=== PATIENT | female | born 1985 | race Caucasian/White ===

== ENCOUNTER → 2016-12-08 | Outpatient (CLI) | payer BC ==
[~2016-12-08] MED LIST: ALBU6.7H INH; ALPR1 PO; CLAR10TA7 PO; DICL50 PO; ROBA750T3 PO; TRAM50 PO
== END ==
LOC: HPND 08:06
PROVIDERS: ATTEND Obstetrics & Gynecology
DX: O30.041 Twin pregnancy, dichorionic/diamniotic, first trimester (principal); Z3A.13 13 weeks gestation of pregnancy
CPT/HCPCS: 76811; 76812; 76817

== ENCOUNTER → 2017-01-05 | Outpatient (CLI) | payer BC | LOC: HPND 08:02 | PROVIDERS: ATTEND Obstetrics & Gynecology | DX: O30.042 Twin pregnancy, dichorionic/diamniotic, second trimester (principal); O09.812 Supervision of pregnancy resulting from assisted reproductive technology, second trimester; O09.212 Supervision of pregnancy with history of pre-term labor, second trimester | CPT/HCPCS: 76816; 76817 ==

== ENCOUNTER 2017-01-17 09:48 | Emergency (ER) | payer BC ==
--- NOTE | 2017-01-17 10:43 | PD ---
HPI Chief Complaint Crampy abdominal pain no bleeding Date Seen: Jan 17, 2017 Time Seen: 10:35 Travel History International Travel<30 Days: No Contact w/Intl Traveler<30Days: No Known Affected Area: No History of Present Illness HPI Patient is 31-year-old white female previous 2 at 23-1/2 weeks with twin gestation followed by Dr. Escalante for care presents planning of lower abdominal pain. No bleeding or leakage of fluid. Patient has placenta previa as well. Heart tones for twins are within normal limits for 23 weeks ago heart monitor and no contractions seen. Weeks Gestation: 23 Para: 3 : 4 History Past Medical History Narrative Medical Asthma uses an inhaler Obstetric History Obstetric History One vaginal delivery than 2 C-sections Past Surgical History Narrative Surgical 2 C-sections Social History Alcohol Use: No Tobacco Use: No Substance Abuse: No Allergies-Medications (Allergen,Severity, Reaction): Coded Allergies: acetaminophen (Unverified Allergy, Severe, 11/16/16) codeine (Unverified Allergy, Severe, ITCH, 11/16/16) propoxyphene (Unverified Allergy, Severe, 11/16/16) oxycodone (Unverified Allergy, Intermediate, itch, 11/16/16) Uncoded Allergies: NOT CODEINE (Allergy, Unknown, 11/16/16) PATIENT STATES NOT ALLERGIC TO CODEINE OR OXYCODONE NOT OXYCODONE (Allergy, Unknown, 11/16/16) PATIENT STATES NOT ALLERGIC TO OXYCODONE Home Meds Active Scripts Tramadol Hcl (Ultram) 50 Mg Tab, 50-100 MG PO Q6 Y, #20 TAB FOR PAIN Prov:Leroy Vaughn MD 12/20/12 Diclofenac Sod (Voltaren) 50 Mg Tabec, 50 MG PO TID, #30 FOR PAIN Prov:Leroy Vaughn MD 12/20/12 Methocarbamol (Robaxin-750) 750 Mg Tab, 1500 MG PO TID, #50 Prov:Leroy Vaughn MD 12/20/12 Reported Medications Loratadine (Claritin) 10 Mg Tab, 10 MG PO DAILY, TAB 12/20/12 Alprazolam (Xanax 1 Mg Tab) 1 Mg Tab, 1 MG PO Q6H Y, TAB 12/20/12 Albuterol Sulfate (Proventil Hfa) 6.7 Gm Aero, 1 PUFF INH Q6, #1 * SHAKE WELL BEFORE USE * 09/07/10 Review of Systems General / Constitutional: No: Fever, Weight Gain, Chills, Other Eyes: No: Diploplia, Blurred Vision, Visual changes, Pain, Photophobia HENT: No: Headaches, Vertigo, Lightheadedness Cardiovascular: No: Irregular Rhythm, Chest Pain or Discomfort, Palpitations, Tachycardia, Syncope, Varicosities, Edema, Cyanosis Respiratory: No: Cough, Short of Breath, Other Gastrointestinal: Abdominal Pain, No: Nausea, Vomiting, Diarrhea Genitourinary: No: Decreased Urinary Output, Oliguria Musculoskeletal: No: Limited ROM, Weakness, Cramping, Edema, Pain Skin: No Rash, No Itching, No Dryness, No Lumps, No Change in Pigmentation, No Change in Nails, No Alopecia, No Lesions Neurologic: No: Weakness, Dizziness, Syncope, Focal Abnormalities, Coordination Problem, Headache, Slurred Speech, Seizures Psychiatric: No: Depression, Suicidal Ideations, Homicidal Ideation Endocrine: No: Heat Intolerance, Cold Intolerance, Polydipsia, Polyuria, Other Physical Exam Narrative GENERAL: Well-nourished, well-developed patient. SKIN: Warm and dry. HEAD: Normocephalic and atraumatic. EYES: No scleral icterus. No injection or drainage. ENT: No nasal drainage noted. Mucous membranes pink. Airway patent. NECK: Supple, trachea midline. No JVD. CARDIOVASCULAR: Regular rate and rhythm without murmurs, gallops, or rubs. RESPIRATORY: Breath sounds equal bilaterally. No accessory muscle use. BREASTS: Bilateral exam showed no masses , no retractions, no nipple discharge. ABDOMEN/GI: Abdomen soft, non-tender, bowel sounds present, no rebound, no guarding Gravid to [-26] weeks size Fundal Height: [26-] twins GENITOURINARY: External Genitalia: intact and normal in appearance BUS glands: [-] Cervix: [-closed] Dilatation: [-closed] Effacement: [-thick] Station: [high-] Membranes: [intact ] Uterine Contractions: [none-] FHT's: 130/140 Category: [-1] EXTREMITIES: No cyanosis or edema. BACK: Nontender without obvious deformity. No CVA tenderness. NEUROLOGICAL: Awake and alert. Motor and sensory grossly within normal limits. Five out of 5 muscle strength in all muscle groups. Normal speech. Data Data Labs Negative except for trace to 1 plus protein MDM Interpretation(s) Patient is 31-year-old white female previous 2 23-1/2 weeks with glands and placenta previa presents with abdominal pain, no bleeding or leakage of fluid. No contractions noted. Urinalysis negative. Pain is related to soft tissue strain round ligament stretch and musculoskeletal pain. Plan Plan the patient to hydrate by mouth, use Tylenol as needed. And hot bath or heating pad for relief. Work note given for to stay off work for 2 days Diagnosis Diagnosis: Primary Impression: Twins Additional Impressions: Round ligament pain 23 weeks gestation of Disposition: 01 DISCHARGE HOME Condition: Stable Ashkan Cabral II, MD Jan 17, 2017 10:43
== END 2017-01-17 11:00 | disposition home or self-care (01) ==
LOC: HOBED 09:48
DX: O26.892 Other specified pregnancy related conditions, second trimester (principal); O44.02 Complete placenta previa NOS or without hemorrhage, second trimester; J45.909 Unspecified asthma, uncomplicated; Z3A.23 23 weeks gestation of pregnancy
CPT/HCPCS: 99283

== ENCOUNTER → 2017-01-19 | Outpatient (CLI) | payer BC | LOC: HPND 08:57 | PROVIDERS: ATTEND Obstetrics & Gynecology | DX: O44.22 Partial placenta previa NOS or without hemorrhage, second trimester (principal); O30.042 Twin pregnancy, dichorionic/diamniotic, second trimester; O09.812 Supervision of pregnancy resulting from assisted reproductive technology, second trimester; Z3A.23 23 weeks gestation of pregnancy | CPT/HCPCS: 76825; 76827; 93325 ==

== ENCOUNTER → 2017-02-03 | Outpatient (CLI) | payer BC | LOC: HPND 08:15 | PROVIDERS: ATTEND Obstetrics & Gynecology | DX: O34.219 Maternal care for unspecified type scar from previous cesarean delivery (principal); O44.02 Complete placenta previa NOS or without hemorrhage, second trimester; O30.042 Twin pregnancy, dichorionic/diamniotic, second trimester | CPT/HCPCS: 76816 ==

== ENCOUNTER → 2017-02-23 | Outpatient (CLI) | payer BC | LOC: HPND 10:50 | PROVIDERS: ATTEND Obstetrics & Gynecology | DX: O09.813 Supervision of pregnancy resulting from assisted reproductive technology, third trimester (principal); O34.219 Maternal care for unspecified type scar from previous cesarean delivery; O30.043 Twin pregnancy, dichorionic/diamniotic, third trimester | CPT/HCPCS: 76816 ==

== ENCOUNTER → 2017-03-16 | Outpatient (CLI) | payer BC ==
[~2017-03-16] MED LIST changes: +MACR100C2 PO
== END ==
LOC: HPND 09:54
PROVIDERS: ATTEND Obstetrics & Gynecology
DX: O44.03 Complete placenta previa NOS or without hemorrhage, third trimester (principal); O30.043 Twin pregnancy, dichorionic/diamniotic, third trimester; O09.813 Supervision of pregnancy resulting from assisted reproductive technology, third trimester
CPT/HCPCS: 76816

== ENCOUNTER 2017-03-19 19:00 | Emergency (ER) | payer BC ==
[~2017-03-19 19:00] MED LIST changes: -MACR100C2 PO
--- NOTE | 2017-03-19 21:02 | PD ---
HPI Chief Complaint 32 weeks and 2 days Vaginal spotting 1 day Travel History International Travel<30 Days: No Contact w/Intl Traveler<30Days: No Known Affected Area: No History of Present Illness HPI Pt is a 31 yo who presents with c/o red vaginal discharge on wiping earlier today. She subsequently had some pinkish discharge twice after. She reports intermittent upper abdominal pain, radiating to her back. Mild. Active movements. care with [facility]. EDC 05-12-2017. Pt has h/o complete placenta previa, and placenta accreta . Pt has had 2 previous C Sections. This is a surrogate , with twins. Weeks Gestation: 32 Para: 3 : 5 Miscarriage: 1 History Past Medical History Narrative Medical h/o Asthma, well controlled. has rescue Albuterol inhaler. GERD Obstetric History Obstetric History Term x1, C Sections x 2, and one 1st trimester miscarriage. Past Surgical History Narrative Surgical C Sections x2 Family History Family History: Negative Social History Alcohol Use: No Tobacco Use: No Substance Abuse: No Allergies-Medications (Allergen,Severity, Reaction): Coded Allergies: acetaminophen (Unverified Allergy, Severe, 11/16/16) codeine (Unverified Allergy, Severe, ITCH, 11/16/16) propoxyphene (Unverified Allergy, Severe, 11/16/16) oxycodone (Unverified Allergy, Intermediate, itch, 11/16/16) Uncoded Allergies: NOT CODEINE (Allergy, Unknown, 11/16/16) PATIENT STATES NOT ALLERGIC TO CODEINE OR OXYCODONE NOT OXYCODONE (Allergy, Unknown, 11/16/16) PATIENT STATES NOT ALLERGIC TO OXYCODONE Home Meds Active Scripts Tramadol Hcl (Ultram) 50 Mg Tab, 50-100 MG PO Q6 Y, #20 TAB FOR PAIN Prov:Leroy Vaughn MD 12/20/12 Diclofenac Sod (Voltaren) 50 Mg Tabec, 50 MG PO TID, #30 FOR PAIN Prov:Leroy Vaughn MD 12/20/12 Methocarbamol (Robaxin-750) 750 Mg Tab, 1500 MG PO TID, #50 Prov:Leroy Vaughn MD 12/20/12 Reported Medications Loratadine (Claritin) 10 Mg Tab, 10 MG PO DAILY, TAB 12/20/12 Alprazolam (Xanax 1 Mg Tab) 1 Mg Tab, 1 MG PO Q6H Y, TAB 12/20/12 Albuterol Sulfate (Proventil Hfa) 6.7 Gm Aero, 1 PUFF INH Q6, #1 * SHAKE WELL BEFORE USE * 09/07/10 Review of Systems Except as stated in HPI: all other systems reviewed are Neg Physical Exam Narrative GENERAL: Well-nourished, well-developed patient. SKIN: Warm and dry. HEAD: Normocephalic and atraumatic. EYES: No scleral icterus. No injection or drainage. ENT: No nasal drainage noted. Mucous membranes pink. Airway patent. NECK: Supple, trachea midline. No JVD. CARDIOVASCULAR: Regular rate and rhythm without murmurs, gallops, or rubs. RESPIRATORY: Breath sounds equal bilaterally. No accessory muscle use. BREASTS: Bilateral exam showed no masses , no retractions, no nipple discharge. ABDOMEN/GI: Abdomen soft, non-tender, bowel sounds present, no rebound, no guarding Gravid to [-] weeks size Fundal Height: [-] GENITOURINARY: External Genitalia: intact and normal in appearance STERILE SPECULUM EXAM; BUS glands: [wnl] Cervix: [-] Dilatation: [CLOSED] Effacement: [long] Membranes: [intact] Uterine Contractions: [none]irritable pattern FHT's: Category: [1] x 2 Baseline: [120s] Reactive: [Y] Variability: [-] Decels: [none] EXTREMITIES: No cyanosis or edema. BACK: Nontender without obvious deformity. No CVA tenderness. NEUROLOGICAL: Awake and alert. Motor and sensory grossly within normal limits. Five out of 5 muscle strength in all muscle groups. Normal speech. Data Data Vital Signs Reviewed: Yes Orders Orders Vital Signs (Adult) .ON ADMISSION (03/19/17 20:19) Urinalysis - C+S If Indicated (03/19/17 20:19) ^ Non Stress Test (03/19/17 20:19) ^ Hydration (03/19/17 20:19) MDM Medical Record Reviewed: Yes Interpretation(s) 31 yo at 32 weeks and 2 days. Presents with vaginal spotting. Abdomen soft. FHR Cat1 x2, with irritable pattern on TOCO. Cervix is closed. will check UA. UA suggests UTI. Will give betamethasone series. 1st dose today. FU 24 hours for second dose. Diagnosis Diagnosis: Primary Impression: with 32 completed weeks gestation Additional Impressions: Placenta previa Placenta accreta Vaginal spotting Twin gestation in third trimester UTI (urinary tract infection) in in third trimester Disposition: 01 DISCHARGE HOME Condition: Good Scripts Nitrofurantoin Monohydrate Macrocrystals (Macrobid) 100 Mg Cap 100 MG PO BID for Infection for 3 Days, #6 CAP 0 Refills Prov: Ganesh Fischer MD 03/19/17 Ganesh Fischer MD Mar 19, 2017 21:02
[2017-03-19 21:25] LABS: BACTERIA, URINE MOD /hpf; BILIRUBIN, URINE NEG (NEG); BLOOD, URINE NEG (NEG); GLUCOSE,URINE NEG (NEG); KETONE, URINE NEG (NEG); MUCUS URINE FEW /lpf (OCC); NITRITE,URINE NEG (NEG); SQUAMOUS EPITHELIAL CELL URINE 3 /hpf (0-5); URINE COLOR LIGHT-YELLOW (YELLW/STRAW); URINE LEUKOCYTE ESTERASE NEG (NEG)
[2017-03-19] MEDS ORDERED: MACR100C2 PO (22:09)
[2017-03-19] MEDS ORDERED: BETAMETHASONE SOD PHOS/ACETATE SUSP 30 MG/5 ML VIAL IM ONE (22:15)
[2017-03-31] MEDS ORDERED: PREN1TAB45 PO (15:01)
[2017-03-31] MEDS ORDERED: PANT20 PO (15:03)
== END 2017-03-19 22:24 | disposition home or self-care (01) ==
LOC: HOBED 19:00
DX: O44.03 Complete placenta previa NOS or without hemorrhage, third trimester (principal); O43.213 Placenta accreta, third trimester; O30.003 Twin pregnancy, unspecified number of placenta and unspecified number of amniotic sacs, third trimester; O23.43 Unspecified infection of urinary tract in pregnancy, third trimester; B96.89 Other specified bacterial agents as the cause of diseases classified elsewhere; Z3A.32 32 weeks gestation of pregnancy
CPT/HCPCS: 59025; 81001; 87086; 96372; 99284; J0702

== ENCOUNTER 2017-03-20 21:31 | Emergency (ER) | payer BC ==
[~2017-03-20 21:31] MED LIST changes: +MACR100C2 PO
[2017-03-20] MEDS ORDERED: BETAMETHASONE SOD PHOS/ACETATE SUSP 30 MG/5 ML VIAL IM ONE (22:00)
== END 2017-03-20 22:14 | disposition home or self-care (01) ==
LOC: HOBED 21:31 → HOBG 22:14
DX: O30.009 Twin pregnancy, unspecified number of placenta and unspecified number of amniotic sacs, unspecified trimester (principal)
CPT/HCPCS: 59025; 96372; J0702

== ENCOUNTER 2017-03-31 11:14 | Observation (INO) | payer BC ==
[~2017-03-31] VITALS: Ht 167.6 cm; Wt 97.0 kg
[2017-03-31] VITALS (7 sets, daily range): BP systolic 104–126; BP diastolic 59–75; PULSE 67–125; RESP 18; TEMP 97.9–99.1
[2017-03-31 12:37] LABS: BASOPHIL # 0.1 TH/MM3 (0-0.2); BASOPHIL % 0.4 % (0.0-2.0); EOSINOPHIL # 0.3 TH/MM3 (0-0.4); EOSINOPHIL % 1.7 % (0.0-4.0); HEMATOCRIT 27.1 % (35.0-46.0); HEMOGLOBIN 8.7 GM/DL (11.6-15.3); LYMPH % 14.5 % (9.0-44.0); LYMPHOCYTE # 2.4 TH/MM3 (1.0-4.8); MEAN CELL VOLUME 81.7 FL (80.0-100.0); MEAN CORPUSCULAR HEMOGLOBIN 26.2 PG (27.0-34.0); MEAN CORPUSCULAR HGB CONC 32.1 % (32.0-36.0); MONO % 5.9 % (0.0-8.0); NEUT % 77.5 % (16.0-70.0); PLATELET COUNT 278 TH/MM3 (150-450); RED BLOOD COUNT 3.31 MIL/MM3 (4.00-5.30); RED CELL DISTRIBUTION WIDTH 15.7 % (11.6-17.2); WHITE BLOOD COUNT 16.8 TH/MM3 (4.0-11.0)
[2017-03-31 12:49] LABS: ALKALINE PHOSPHATASE 180 U/L (45-117); TOTAL BILIRUBIN ADULT 0.2 MG/DL (0.2-1.0)
[2017-03-31 12:55] LABS: ALBUMIN 2.3 GM/DL (3.4-5.0); ALT (GPT) 21 U/L (10-53); AST (GOT) 24 U/L (15-37); BICARBONATE 22.7 MEQ/L (21.0-32.0); BLOOD UREA NITROGEN 8 MG/DL (7-18); CALCIUM 8.7 MG/DL (8.5-10.1); CHLORIDE 105 MEQ/L (98-107); CREATININE 0.43 MG/DL (0.50-1.00); GLOMERULAR FILTRATION RATE 174 ML/MIN (>89); GLUCOSE,RANDOM 86 MG/DL (74-106); SODIUM (NA) 138 MEQ/L (136-145)
[2017-03-31 13:41] LABS: BANDS 10 % (0-6); LYMPHOCYTES 17 % (9-44); METAMYELOCYTES 1 % (0-1); MONOCYTES 10 % (0-8); NEUTROPHIL # MANUAL DIFF 11.8 TH/MM3 (1.8-7.7); POLYS (SEG NEUTROPHILS) 59 % (16-70)
[2017-03-31] MEDS: NIFEdipine 10 MG CAP PO PRN (14:52)
[2017-03-31] MEDS: LACTATED RINGER'S 1000 ML INJ 1,000 ML IV SCH ×2 (14:52→23:00)
[2017-03-31] MEDS ORDERED: PREN1TAB45 PO ×2 (15:01)
[2017-03-31] MEDS ORDERED: PANT20 PO ×2 (15:03)
[2017-03-31 16:11] LABS: BACTERIA, URINE MOD /hpf; BILIRUBIN, URINE NEG (NEG); BLOOD, URINE NEG (NEG); GLUCOSE,URINE NEG (NEG); KETONE, URINE NEG (NEG); MUCUS URINE FEW /lpf (OCC); NITRITE,URINE NEG (NEG); SQUAMOUS EPITHELIAL CELL URINE 1 /hpf (0-5); URINE COLOR YELLOW (YELLW/STRAW); URINE LEUKOCYTE ESTERASE NEG (NEG)
[2017-03-31] MEDS ORDERED: ACETAMINOPHEN 325 MG TAB PO PRN (17:30)
[2017-03-31] MEDS ORDERED: NIFEdipine 10 MG CAP PO PRN (17:30)
[2017-03-31] MEDS ORDERED: diphenhydrAMINE HCL 25 MG CAP PO PRN (17:30)
[2017-03-31] MEDS: ACETAMIN 325 MG/BUTALBITAL 50 MG/CAFFEINE 40 MG TAB PO PRN (21:09)
[2017-04-01] VITALS (7 sets, daily range): BP systolic 99–120; BP diastolic 61–88; PULSE 100–111; RESP 16–20; TEMP 97.4–98
[2017-04-01] MEDS ORDERED: ACETAMIN 325 MG/BUTALBITAL 50 MG/CAFFEINE 40 MG TAB PO ONE (00:30)
[2017-04-01] MEDS ORDERED: ZOLPIDEM TARTRATE 5 MG TAB PO ONE (00:30)
[2017-04-01] MEDS ORDERED: PANTOPRAZOLE SODIUM 40 MG VIAL IV PUSH ONE (00:45)
[2017-04-01] MEDS: ACETAMIN 325 MG/BUTALBITAL 50 MG/CAFFEINE 40 MG TAB PO PRN (06:55)
[2017-04-01] MEDS: NIFEdipine 10 MG CAP PO PRN ×2 (06:55→11:27)
--- NOTE | 2017-04-01 09:55 | MH ---
cc: [facility]IRA STREETER DATE OF ADMISSION 03/31/2017 HISTORY OF PRESENT ILLNESS The patient is a 31-year-old 4, para 3-0-0-3 who presents at 34 weeks gestation from the office with an elevated blood pressure of 150/100, complaints of back pain and headache. The patient's is complicated by a being a surrogate with Di-di twin having placenta previa, possible accreta on MRI. PAST MEDICAL HISTORY The patient's past medical history is significant for asthma. PAST SURGICAL HISTORY Her past surgical history is significant for two prior C-sections. OBSTETRICAL HISTORY She has had three pregnancies. Her first was delivered vaginally her second two pregnancies were delivered by and then the fourth is a surrogacy with twins. FAMILY HISTORY Significant for diabetes and COPD in a maternal grandmother. SOCIAL HISTORY Negative for cigarettes, alcohol or street drugs. 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 PHYSICAL EXAM VITALS: Her blood pressure again 150/100. HEART: Regular rate and rhythm. LUNGS: Her lungs are clear to auscultation bilaterally. ABDOMEN: Her abdomen is gravid. heart tones are in the 140's for baby A, 150's with baby B. EXTREMITIES: Lower extremities are nontender. Reflexes are 2+ bilaterally. IMPRESSION Di-di twins, placenta previa possible accreta, and gestational hypertension. PLAN We will send to labor and delivery for preeclampsia workup and also to monitor her contractions. The patient has had steroids just over a week ago. MD SHONNA Horton/CAMI /8:11 AM /9:26 AM
[2017-04-01] MEDS: LACTATED RINGER'S 1000 ML INJ 1,000 ML IV SCH (11:27)
[2017-04-01 11:41] LABS: AUTOMATED NEUTROPHIL # 11.4 TH/MM3 (1.8-7.7); BASOPHIL # 0.1 TH/MM3 (0-0.2); BASOPHIL % 0.4 % (0.0-2.0); EOSINOPHIL # 0.3 TH/MM3 (0-0.4); EOSINOPHIL % 1.8 % (0.0-4.0); HEMATOCRIT 34.1 % (35.0-46.0); HEMOGLOBIN 11.3 GM/DL (11.6-15.3); LYMPH % 13.6 % (9.0-44.0); MEAN CELL VOLUME 82.1 FL (80.0-100.0); MEAN CORPUSCULAR HEMOGLOBIN 27.3 PG (27.0-34.0); MEAN CORPUSCULAR HGB CONC 33.3 % (32.0-36.0); MEAN PLATELET VOLUME 6.6 FL (7.0-11.0); MONO % 6.1 % (0.0-8.0); MONOCYTE # 0.9 TH/MM3 (0-0.9); NEUT % 78.1 % (16.0-70.0); PLATELET COUNT 231 TH/MM3 (150-450); RED BLOOD COUNT 4.16 MIL/MM3 (4.00-5.30); RED CELL DISTRIBUTION WIDTH 15.4 % (11.6-17.2); WHITE BLOOD COUNT 14.6 TH/MM3 (4.0-11.0)
[2017-04-01 13:03] LABS: BANDS 8 % (0-6); BASOPHILS 1 % (0-2); LYMPHOCYTES 5 % (9-44); METAMYELOCYTES 1 % (0-1); MONOCYTES 8 % (0-8); MYELOCYTES 3 % (0-0); NEUTROPHIL # MANUAL DIFF 12.4 TH/MM3 (1.8-7.7); POLYS (SEG NEUTROPHILS) 73 % (16-70)
--- NOTE | 2017-04-01 13:27 | PD.OB.ANTE ---
Subjective Interval History headache and back pain resolved. denies epigastric pain. +FM X 2, denies LOF/ VB Objective Vital Signs Vital Signs Date Time Temp Pulse Resp B/P (MAP) Pulse Ox O2 Delivery O2 Flow Rate FiO2 04/01/17 06:07 98.0 103 18 120/88 04/01/17 04:07 97.8 108 18 99/75 04/01/17 03:49 97.9 100 18 119/61 04/01/17 03:32 97.7 105 20 117/74 04/01/17 01:29 97.4 104 16 117/75 04/01/17 01:11 97.7 111 18 116/68 04/01/17 00:43 18 04/01/17 00:31 97.9 106 18 114/71 03/31/17 23:07 98.0 108 18 104/63 03/31/17 22:05 97.9 112 18 120/65 03/31/17 19:35 98.4 03/31/17 19:10 67 112/59 03/31/17 18:55 83 18 124/75 03/31/17 18:40 125 18 126/75 03/31/17 18:25 99.1 123 115/71 Intake & Output 04/01/17 04/01/17 07:00 19:00 Intake Total 1650 ml Balance 1650 ml Packed Cells 1600 ml Blood Product IV Normal Saline Flush 50 ml Lab & Micro Results Test 04/01/17 11:10 White Blood Count 14.6 TH/MM3 Red Blood Count 4.16 MIL/MM3 Hemoglobin 11.3 GM/DL Hematocrit 34.1 % Mean Corpuscular Volume 82.1 FL Mean Corpuscular Hemoglobin 27.3 PG Mean Corpuscular Hemoglobin Concent 33.3 % Red Cell Distribution Width 15.4 % Platelet Count 231 TH/MM3 Mean Platelet Volume 6.6 FL Neutrophils (%) (Auto) 78.1 % Lymphocytes (%) (Auto) 13.6 % Monocytes (%) (Auto) 6.1 % Eosinophils (%) (Auto) 1.8 % Basophils (%) (Auto) 0.4 % Neutrophils # (Auto) 11.4 TH/MM3 Lymphocytes # (Auto) 2.0 TH/MM3 Monocytes # (Auto) 0.9 TH/MM3 Eosinophils # (Auto) 0.3 TH/MM3 Basophils # (Auto) 0.1 TH/MM3 CBC Comment AUTO DIFF Differential Total Cells Counted 100 Neutrophils % (Manual) 73 % Band Neutrophils % 8 % Lymphocytes % 5 % Monocytes % 8 % Eosinophils % 1 % Basophils % 1 % Neutrophils # (Manual) 12.4 TH/MM3 Metamyelocytes 1 % Myelocytes 3 % Differential Comment FINAL DIFF MANUAL Platelet Estimate NORMAL Platelet Morphology Comment NORMAL Red Cell Morphology Comment NORMAL Date/Time Source Procedure Growth Status 03/31/17 11:40 Urine Clean Catch Urine Culture - Preliminary IMMATURE GROWTH - REINCUBATE Resulted Physical Exam GENERAL: Well-nourished, well-developed patient. CARDIOVASCULAR: Regular rate and rhythm without murmurs, gallops, or rubs. RESPIRATORY: Breath sounds equal bilaterally. No accessory muscle use. left sided wheezes ABDOMEN/GI: Abdomen soft, non-tender. FHT's: Category: [-] 1 Baseline: [-] Reactive: [-] Variability: [-] Decels: [-] EXTREMITIES: No cyanosis or edema, non-tender, without signs of DVT. Assessment and Plan Problem List: (1) Placenta previa antepartum in third trimester ICD Codes: O44.03 - Complete placenta previa NOS or without hemorrhage, third trimester Plan: plan delivery weds s/p 3 units prbcs (2) Dichorionic diamniotic twin in third trimester ICD Codes: O30.043 - Twin , dichorionic/diamniotic, third trimester Plan: will d/c home on procardia for contractions and fioricet to help with headaches Chinyere Escalante MD Apr 01, 2017 13:27
[2017-04-01] MEDS ORDERED: Acet-Butal-Caff 325-50-40 Mg PO (13:33)
[2017-04-01] MEDS ORDERED: NIFE10 PO (13:33)
--- NOTE | 2017-04-01 13:39 | HHI.DS ---
Admission Date Mar 31, 2017 at 11:14 Discharge Date: Apr 01, 2017 Admitting Diagnosis gestational hypertension, di/di twins, placenta previa, possible accreta Diagnosis: Hospital Course pt was admitted with gestational hypertension workup. she was noted to be david. she was started on procardia and contractions improved. her gestational hypertension work up was negative and bps improved on bedrest. anemia was noted and pt was transfused 4 units of prbcs. / hysterectomy will be scheduled for 04/06/16. Pt Condition on Discharge: Stable Discharge Disposition: Discharge Home Discharge Instructions Diet Instructions: As Tolerated, No Restrictions Activities You Can Perform: Pelvic Rest, Continue Bedrest Activities to Avoid: Sexual Activity Chinyere Escalante MD Apr 01, 2017 13:39
== END 2017-04-01 14:33 | disposition home or self-care (01) ==
LOC: H2EA 11:14
PROVIDERS: ADMIT Obstetrics & Gynecology; ATTEND Obstetrics & Gynecology
DX: O13.4 Gestational [pregnancy-induced] hypertension without significant proteinuria, complicating childbirth (principal); O44.03 Complete placenta previa NOS or without hemorrhage, third trimester; O30.043 Twin pregnancy, dichorionic/diamniotic, third trimester; O99.013 Anemia complicating pregnancy, third trimester; O99.53 Diseases of the respiratory system complicating the puerperium; J45.909 Unspecified asthma, uncomplicated; Z3A.34 34 weeks gestation of pregnancy
CPT/HCPCS: 36430; 80053; 81001; 84157; 85007; 85027; 86850; 86900; 86901; 86902; 86920; 86922; 87086; 96361; 96374; C9113; G0378; J7120; P9016

== ENCOUNTER 2017-04-06 04:16 | Inpatient (IN) | payer BC, OTHER ==
[~2017-04-06] VITALS: Ht 167.6 cm; Wt 98.4 kg
[2017-04-06] VITALS (25 sets, daily range): BP systolic 94–134; BP diastolic 59–73; PULSE 92–148; RESP 17–22; TEMP 97.7–98.9; O2SAT 94–97
[~2017-04-06 04:16] MED LIST changes: -ALPR1 PO; +Acet-Butal-Caff 325-50-40 Mg PO; -CLAR10TA7 PO; -DICL50 PO; -MACR100C2 PO; +NIFE10 PO; +PANT20 PO; +PREN1TAB45 PO; -ROBA750T3 PO; -TRAM50 PO
[2017-04-06 04:54] LABS: AUTOMATED NEUTROPHIL # 10.1 TH/MM3 (1.8-7.7); BASOPHIL # 0.1 TH/MM3 (0-0.2); BASOPHIL % 0.4 % (0.0-2.0); EOSINOPHIL # 0.3 TH/MM3 (0-0.4); EOSINOPHIL % 2.2 % (0.0-4.0); HEMATOCRIT 35.9 % (35.0-46.0); HEMOGLOBIN 12.1 GM/DL (11.6-15.3); LYMPH % 19.2 % (9.0-44.0); LYMPHOCYTE # 2.7 TH/MM3 (1.0-4.8); MEAN CELL VOLUME 83.1 FL (80.0-100.0); MEAN CORPUSCULAR HEMOGLOBIN 27.9 PG (27.0-34.0); MEAN CORPUSCULAR HGB CONC 33.5 % (32.0-36.0); MEAN PLATELET VOLUME 7.2 FL (7.0-11.0); MONO % 6.4 % (0.0-8.0); MONOCYTE # 0.9 TH/MM3 (0-0.9); NEUT % 71.8 % (16.0-70.0); PLATELET COUNT 235 TH/MM3 (150-450); RED BLOOD COUNT 4.33 MIL/MM3 (4.00-5.30); RED CELL DISTRIBUTION WIDTH 16.2 % (11.6-17.2); WHITE BLOOD COUNT 14.1 TH/MM3 (4.0-11.0)
[2017-04-06 04:57] LABS: BACTERIA, URINE OCC /hpf; BILIRUBIN, URINE NEG (NEG); BLOOD, URINE NEG (NEG); GLUCOSE,URINE NEG (NEG); KETONE, URINE NEG (NEG); MUCUS URINE FEW /lpf (OCC); NITRITE,URINE NEG (NEG); PH, URINE 6.5 (5.0-8.5); SQUAMOUS EPITHELIAL CELL URINE 7 /hpf (0-5); URINE COLOR YELLOW (YELLW/STRAW); URINE LEUKOCYTE ESTERASE NEG (NEG)
[2017-04-06] MEDS ORDERED: CITRIC ACID-SODIUM CITRATE LIQ 30 ML UDC PO SCH (05:00)
[2017-04-06] MEDS ORDERED: LACTATED RINGER'S 1000 ML IV ONE (05:00)
[2017-04-06] MEDS ORDERED: ceFAZolin 2 GM PREMIX 50 ML IV SCH (05:00)
[2017-04-06] MEDS ORDERED: SODIUM CHLORIDE FLUSH PRN IV FLUSH (05:00)
[2017-04-06] MEDS ORDERED: LACTATED RINGER'S 1000 ML IV SCH (05:00)
[2017-04-06 05:08] LABS: ALBUMIN 2.3 GM/DL (3.4-5.0); AST (GOT) 18 U/L (15-37); BICARBONATE 23.2 MEQ/L (21.0-32.0); BLOOD UREA NITROGEN 9 MG/DL (7-18); CALCIUM 8.3 MG/DL (8.5-10.1); CHLORIDE 105 MEQ/L (98-107); CREATININE 0.58 MG/DL (0.50-1.00); GLOMERULAR FILTRATION RATE 123 ML/MIN (>89); GLUCOSE,RANDOM 84 MG/DL (74-106); SODIUM (NA) 137 MEQ/L (136-145)
[2017-04-06 05:09] LABS: ALT (GPT) 20 U/L (10-53)
[2017-04-06 05:11] LABS: ALKALINE PHOSPHATASE 193 U/L (45-117); TOTAL BILIRUBIN ADULT 0.3 MG/DL (0.2-1.0)
[2017-04-06] MEDS ORDERED: RESP: ALBUTEROL 2.5 MG/3 ML NEB (PRN) ONE (07:06)
[2017-04-06] MEDS ORDERED: ACETAMINOPHEN 1000 MG/100 ML 100 ML IV ONE ×2 (07:15→09:45)
[2017-04-06] MEDS ORDERED: MORPHINE SULFATE PF 10 MG/10 ML VIAL ONE (07:15)
[2017-04-06] MEDS ORDERED: HEPARIN SODIUM - SQ 10,000 UNITS/ML VIAL ONE (07:27)
[2017-04-06] MEDS ORDERED: TRANEXAMIC ACID INJ 1,000 MG/10 ML AMP ONE (07:31)
--- NOTE | 2017-04-06 07:46 | MH ---
cc: CHINY[facility] STREETER DATE OF ADMISSION: 04/06/2017 HISTORY OF PRESENT ILLNESS: The patient is a 31 year-old 4, para 3-0-0-3, who presents 34-6/7 weeks for a , possible hysterectomy. The patient has had increasing blood pressures over the last five days and a 24 hour urine that actually returned with over 500 milligrams of protein in the urine and intermittent complaints of headache and back pain. The patient has been taking Procardia for contractions. The is also complicated by the patient being a surrogate, IVF Di/di twins, having placenta previa and possible placenta accreta on MRI. PAST MEDICAL HISTORY: Asthma. PAST SURGICAL HISTORY: Two prior C-sections. Bilateral tubal ligation OBSTETRICAL HISTORY: Three pregnancies. First vaginal delivery, second two pregnancies delivered by . 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 SOCIAL HISTORY: Negative for cigarettes, alcohol, street drugs. 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 FAMILY HISTORY: Positive for diabetes and COPD in the maternal grandmother. PHYSICAL EXAMINATION: Her blood pressure of the office today 143/86. Heart: Regular rate and rhythm. Lungs: Clear to auscultation bilaterally. Abdomen: Gravid, nontender. heart tone are in the 150s for baby A, baby B in the 130s. LOWER EXTREMITIES: Nontender. Reflexes are 2+ bilaterally. IMPRESSION Di/di twins at 34-6/7 weeks, placenta previa, possible accreta, gestational hypertension. PLAN: The plan is for delivery via , likely hysterectomy. The risks, benefits and alternatives have been reviewed. The patient and her understand the risks and desire to proceed. Chinyere Streeter MD TEG/MEGAN /10:40 PM /7:28 AM MIKE
[2017-04-06] MEDS ORDERED: EPIDURAL-DIPHENHYDRAMINE HCL 50 MG/ML VIAL IV PUSH PRN (07:53)
[2017-04-06] MEDS ORDERED: EPIDURAL-NO SYSTEMIC NARCOTICS PRN (07:53)
[2017-04-06] MEDS ORDERED: EPIDURAL-DIPHENHYDRAMINE HCL 50 MG CAP PO PRN (07:53)
[2017-04-06] MEDS ORDERED: EPIDURAL-NALOXONE HCL 0.4 MG/ML AMP IV PUSH PRN (07:53)
[2017-04-06] MEDS ORDERED: EPIDURAL-DO NOT ADMINISTER ANTICOAGULANTS PRN (07:53)
[2017-04-06] MEDS ORDERED: OXYTOCIN 10 UNIT/ML AMP ONE (08:15)
[2017-04-06] MEDS ORDERED: SODIUM CHLORIDE FLUSH BID IV FLUSH SCH (09:00)
[2017-04-06] MEDS ORDERED: DO NOT ADM ANY ANTICOAGULANT DRUGS PRN (09:12)
[2017-04-06] MEDS ORDERED: *morphine SULFATE 8 MG/ML PERIprocedure ONLY ONE ×2 (09:18→09:53)
[2017-04-06] MEDS: METHYLERGONOVINE MALEATE 0.2 MG/ML VIAL IM PRN ×3 (09:24→20:57)
[2017-04-06] MEDS ORDERED: oxyCODONE/ACETAMINOPHEN 5 MG/325 MG TAB PO PRN (09:45)
[2017-04-06] MEDS ORDERED: NALOXONE HCL 0.4 MG/ML AMP IV PUSH PRN (09:45)
[2017-04-06] MEDS ORDERED: diphenhydrAMINE HCL 25 MG CAP PO PRN (09:45)
[2017-04-06] MEDS ORDERED: diphenhydrAMINE HCL 50 MG/ML VIAL IV PUSH PRN (09:45)
[2017-04-06] MEDS ORDERED: SODIUM CHLORIDE 0.9% FLUSH 10 ML FLUSH IV FLUSH PRN (09:45)
[2017-04-06] MEDS ORDERED: OXYTOCIN 10 UNIT/ML AMP XX PRN (09:45)
[2017-04-06] MEDS ORDERED: OXYTOCIN 30 UNITS-500ML PREMIX 500 ML IV ONE (09:45)
[2017-04-06] MEDS ORDERED: ONDANSETRON HCL 4 MG/2 ML VIAL IV PUSH PRN (09:45)
[2017-04-06] MEDS ORDERED: MORPHINE SULFATE 30 MG/30 ML PCA IV SCH (09:45)
[2017-04-06] MEDS ORDERED: OXYTOCIN 10 UNIT/ML AMP XX ONE (09:45)
--- NOTE | 2017-04-06 09:54 | MP ---
cc: CHINYERE STREETER,ELY Maurice M.D. DATE OF SURGERY 04/06/2017 PREOPERATIVE DIAGNOSES 1. Di/di twins at 34 and 6/7 weeks gestation. 2. Placenta praevia, possible accreta. POSTOPERATIVE DIAGNOSES 1. Di/di twins at 34 and 6/7 weeks gestation. 2. Placenta praevia. PROCEDURE Classical section. SURGEON MD Ely Prado MD ANESTHESIA Spinal. ESTIMATED BLOOD LOSS 1500 cc. IV FLUIDS 2 liters. URINE OUTPUT 350 cc of clear yellow urine at the end of the case. FINDINGS 1. Dense pelvic adhesions to the lower uterine segment and posterior portion of the bladder. 2. Normal ovaries and fallopian tubes with evidence of prior tubal ligation. COUNTS Correct x 2. DISPOSITION Stable in the PACU. INDICATIONS FOR PROCEDURE The patient is a 31-year-old 4, para 3-0-03 who presented at 34 weeks gestation with an IVF surrogate of di/di twins at 34 and 6/7 weeks with placenta praevia, possible accreta for repeat section, possible hysterectomy by midline vertical incision and classical uterine incision. OPERATIVE PROCEDURE After consents were signed, the patient was taken to the surgical suite. She was given spinal anesthesia. She was then prepped and draped in normal sterile fashion for surgery. A midline vertical incision was made below the umbilicus and carried down to the underlying layer of fascia using the knife. The fascia was in the midline and the peritoneum was easily identified. Immediately a dense lower uterine segment and posterior bladder adhesions were encountered. A classical incision was made well above these adhesions and carried down until the endometrial cavity was encountered. The membranes were ruptured for clear fluid of Baby A. The infant vertex was delivered followed by the remainder of the infant's body. The cord was doubly clamped and cut. Next, the membranes were ruptured for Baby B and the baby was noted to be vertex and delivered through the uterine incision. The cord was clamped and cut and Baby B was passed off to the nursery team. Cord bloods were obtained and cord blood cell collection kits were obtained for both baby's A and B. Next, it appeared the placenta for Baby B was readily delivering and then a plane was able to be developed and the placenta was also able to be removed for Baby A as well. The uterus was cleared of all clot and debris. Next, the uterine incision was repaired in layers starting with the endometrial layer. This was endometrial and some of the myometrium was repaired using 1 chromic suture in a running locked fashion. A second layer was placed in the myometrium closing the defect even more. A third layer was placed along hysterotomy incision closing the serosa and the final portion of the myometrium. Once this was done, there was noted to be some superficial bleeders that were made hemostatic using 3-0 chromic suture in an interrupted fashion, both on the superior and inferior portion of the hysterotomy incision. There was noted to be a small amount of ballooning or collection of blood in the lower uterine segment of the uterus. This was compressed manually for approximately 3 minutes. There was noted to be no additional welling up. The tubes and ovaries were inspected. The ovaries appeared grossly within normal limits, the tubes with evidence of prior tubal ligation. The uterus was returned to the abdominal cavity. The gutters were cleared of clot and debris. Superficial bleeders were made hemostatic using the Bovie. The fascia and peritoneum were reapproximated using a looped PDS in a running fashion. The subcutaneous fat was reapproximated using 3-0 chromic suture. The skin was closed using brianda. The patient was then taken to the recovery room in stable condition. Chinyere Streeter MD TEG/ANNEL /9:09 AM /9:17 AM
[2017-04-06 09:56] LABS: AUTOMATED NEUTROPHIL # 15.5 TH/MM3 (1.8-7.7); BASOPHIL % 0.2 % (0.0-2.0); EOSINOPHIL # 0.3 TH/MM3 (0-0.4); EOSINOPHIL % 1.4 % (0.0-4.0); HEMATOCRIT 25.4 % (35.0-46.0); LYMPH % 11.7 % (9.0-44.0); LYMPHOCYTE # 2.2 TH/MM3 (1.0-4.8); MEAN CELL VOLUME 82.9 FL (80.0-100.0); MEAN CORPUSCULAR HEMOGLOBIN 29.3 PG (27.0-34.0); MEAN CORPUSCULAR HGB CONC 35.4 % (32.0-36.0); MEAN PLATELET VOLUME 7.2 FL (7.0-11.0); MONO % 4.6 % (0.0-8.0); MONOCYTE # 0.9 TH/MM3 (0-0.9); NEUT % 82.1 % (16.0-70.0); PLATELET COUNT 227 TH/MM3 (150-450); RED BLOOD COUNT 3.07 MIL/MM3 (4.00-5.30); RED CELL DISTRIBUTION WIDTH 16.1 % (11.6-17.2); WHITE BLOOD COUNT 18.9 TH/MM3 (4.0-11.0)
[2017-04-06] MEDS ORDERED: HYDROmorphone HCL PF 1 MG/ML VIAL ONE (10:15)
[2017-04-06 10:37] LABS: BANDS 4 % (0-6); LYMPHOCYTES 8 % (9-44); MONOCYTES 2 % (0-8); NEUTROPHIL # MANUAL DIFF 16.8 TH/MM3 (1.8-7.7); POLYS (SEG NEUTROPHILS) 85 % (16-70)
[2017-04-06] MEDS ORDERED: LACTATED RINGER'S 1000 ML INJ 1,000 ML IV ONE (12:00)
[2017-04-06] MEDS ORDERED: ONDANSETRON HCL 4 MG/2 ML VIAL IV ONE (12:00)
[2017-04-06] MEDS ORDERED: PROPOFOL 200 MG/20 ML AMP IV ONE (12:00)
[2017-04-06] MEDS ORDERED: NORMOSOL R INJ 1,000 ML IV ONE (12:00)
[2017-04-06] MEDS ORDERED: PHENYLEPH/NS 1000 MCG/10 ML SYR IV ONE (12:00)
[2017-04-06] MEDS: PCA - TOTAL MG MORPHINE DELIVERED PER SHIFT SCH ×2 (14:00→22:00)
[2017-04-06] MEDS ORDERED: LACTATED RINGER'S 1000 ML INJ 1,000 ML IV SCH (14:13)
[2017-04-06] MEDS ORDERED: MORPHINE SULFATE 4 MG/ML INJ ONE (15:30)
[2017-04-06 15:37] LABS: AUTOMATED NEUTROPHIL # 7.1 TH/MM3 (1.8-7.7); BASOPHIL # 0.1 TH/MM3 (0-0.2); BASOPHIL % 0.8 % (0.0-2.0); EOSINOPHIL # 0.1 TH/MM3 (0-0.4); HEMATOCRIT 34.2 % (35.0-46.0); HEMOGLOBIN 10.9 GM/DL (11.6-15.3); LYMPH % 4.5 % (9.0-44.0); LYMPHOCYTE # 0.4 TH/MM3 (1.0-4.8); MEAN CELL VOLUME 99.3 FL (80.0-100.0); MEAN CORPUSCULAR HEMOGLOBIN 31.6 PG (27.0-34.0); MEAN CORPUSCULAR HGB CONC 31.8 % (32.0-36.0); MEAN PLATELET VOLUME 8.4 FL (7.0-11.0); MONO % 10.8 % (0.0-8.0); MONOCYTE # 0.9 TH/MM3 (0-0.9); NEUT % 82.9 % (16.0-70.0); PLATELET COUNT 244 TH/MM3 (150-450); RED BLOOD COUNT 3.45 MIL/MM3 (4.00-5.30); RED CELL DISTRIBUTION WIDTH 19.5 % (11.6-17.2); WHITE BLOOD COUNT 8.6 TH/MM3 (4.0-11.0)
[2017-04-06] MEDS ORDERED: LIDOCAINE 2% JELLY 30 ML TUBE TOPICAL STA (15:44)
--- NOTE | 2017-04-06 15:59 | HHI.PR ---
LOCAL OPERATOR Note Note Called to see patient for abdominal pain and vaginal bleeding. Patient is post op from this am delivery of twin gestation and placenta previa. C/o bladder pain/fullness/pelvic pain that has increased in frequency over the past 2 hours. Vital Signs Date Time Temp Pulse Resp B/P (MAP) Pulse Ox O2 Delivery O2 Flow Rate FiO2 04/06/17 14:00 16 04/06/17 13:46 97 04/06/17 13:45 98.0 04/06/17 13:45 108 113/69 (84) 04/06/17 10:30 Nasal Cannula 2 Gen: Patient is alert and oriented Chest: CTA Abdomen - Fundus is distended. On vaginal exam uterus is distended with blood clots with cervix tight at only 1cm. Patient was given morphine 4mg IV for pain and manual evacuation of approximately 1000cc blood clots from uterus. Methergine given IM and Cytotec 800mcg buccally administered. After evacuation uterus is firm with hemostasis. Labs are as follows: Laboratory Tests Test 04/06/17 04:41 04/06/17 09:31 04/06/17 15:01 White Blood Count 14.1 TH/MM3 18.9 TH/MM3 8.6 TH/MM3 Red Blood Count 4.33 MIL/MM3 3.07 MIL/MM3 3.45 MIL/MM3 Hemoglobin 12.1 GM/DL 9.0 GM/DL 10.9 GM/DL Hematocrit 35.9 % 25.4 % 34.2 % Mean Corpuscular Volume 83.1 FL 82.9 FL 99.3 FL Mean Corpuscular Hemoglobin 27.9 PG 29.3 PG 31.6 PG Mean Corpuscular Hemoglobin Concent 33.5 % 35.4 % 31.8 % Red Cell Distribution Width 16.2 % 16.1 % 19.5 % Platelet Count 235 TH/MM3 227 TH/MM3 244 TH/MM3 Mean Platelet Volume 7.2 FL 7.2 FL 8.4 FL Neutrophils (%) (Auto) 71.8 % 82.1 % 82.9 % Lymphocytes (%) (Auto) 19.2 % 11.7 % 4.5 % Monocytes (%) (Auto) 6.4 % 4.6 % 10.8 % Eosinophils (%) (Auto) 2.2 % 1.4 % 1.0 % Basophils (%) (Auto) 0.4 % 0.2 % 0.8 % Neutrophils # (Auto) 10.1 TH/MM3 15.5 TH/MM3 7.1 TH/MM3 Lymphocytes # (Auto) 2.7 TH/MM3 2.2 TH/MM3 0.4 TH/MM3 Monocytes # (Auto) 0.9 TH/MM3 0.9 TH/MM3 0.9 TH/MM3 Eosinophils # (Auto) 0.3 TH/MM3 0.3 TH/MM3 0.1 TH/MM3 Basophils # (Auto) 0.1 TH/MM3 0.0 TH/MM3 0.1 TH/MM3 CBC Comment AUTO DIFF AUTO DIFF DIFF FINAL Differential Comment AUTO DIFF CONFIRMED FINAL DIFF MANUAL Prothrombin Time 10.0 SEC Prothromb Time International Ratio 1.0 RATIO Activated Partial Thromboplast Time 24.3 SEC Urine Color YELLOW Urine Turbidity HAZY Urine pH 6.5 Urine Specific [place] 1.027 Urine Protein TRACE mg/dL Urine Glucose (UA) NEG mg/dL Urine Ketones NEG mg/dL Urine Occult Blood NEG Urine Nitrite NEG Urine Bilirubin NEG Urine Urobilinogen LESS THAN 2.0 MG/DL Urine Leukocyte Esterase NEG Urine RBC 1 /hpf Urine WBC 2 /hpf Urine Squamous Epithelial Cells 7 /hpf Urine Bacteria OCC /hpf Urine Mucus FEW /lpf Microscopic Urinalysis Comment CULT NOT INDICATED Blood Urea Nitrogen 9 MG/DL Creatinine 0.58 MG/DL Random Glucose 84 MG/DL Total Protein 7.0 GM/DL Albumin 2.3 GM/DL Calcium Level 8.3 MG/DL Uric Acid 5.0 MG/DL Alkaline Phosphatase 193 U/L Aspartate Amino Transf (AST/SGOT) 18 U/L Alanine Aminotransferase (ALT/SGPT) 20 U/L Total Bilirubin 0.3 MG/DL Sodium Level 137 MEQ/L Potassium Level 3.8 MEQ/L Chloride Level 105 MEQ/L Carbon Dioxide Level 23.2 MEQ/L Anion Gap 9 MEQ/L Estimat Glomerular Filtration Rate 123 ML/MIN Urine Opiates Screen NEG Urine Barbiturates Screen POS Urine Amphetamines Screen NEG Urine Benzodiazepines Screen NEG Urine Cocaine Screen NEG Urine Cannabinoids Screen NEG Differential Total Cells Counted 100 Neutrophils % (Manual) 85 % Band Neutrophils % 4 % Lymphocytes % 8 % Monocytes % 2 % Eosinophils % 1 % Neutrophils # (Manual) 16.8 TH/MM3 Platelet Estimate NORMAL Platelet Morphology Comment NORMAL Red Cell Morphology Comment NORMAL I am concerned that the most recent lab draw is a different patient given the rapid drop in WBC count which should still be elevated given her recent delivery and . H&H, PT/PTT, fibrinogen were redrawn and will be sent to lab again Additional pitocin drip Replace hampton catheter (removed for vaginal clot removal as patient could not tolerate the hampton pain with exam) using lidocaine jelly for patient relief Dr Escalante notified of patient status Siobhan Gamble MD Apr 06, 2017 15:59
[2017-04-06] MEDS: MISOPROSTOL 200 MCG TAB PO SCH (16:00)
[2017-04-06 16:08] LABS: HEMATOCRIT 24.5 % (35.0-46.0); HEMOGLOBIN 7.9 GM/DL (11.6-15.3)
[2017-04-06 16:20] LABS: PROTHROMBIN TIME - PATIENT 10.6 SEC (9.8-11.6)
[2017-04-06] MEDS ORDERED: LIDOCAINE 2% JELLY 5 ML TUBE TOPICAL STA (16:25)
[2017-04-06] MEDS ORDERED: MORPHINE SULFATE 2 MG/ML INJ IV ONE (17:45)
[2017-04-06] MEDS ORDERED: OXYTOCIN 30 UNITS-500ML PREMIX 500 ML IV PRN (19:15)
[2017-04-06] MEDS ORDERED: SODIUM CHLORIDE 0.9% FLUSH 10 ML FLUSH IV FLUSH SCH (21:00)
[2017-04-06] MEDS ORDERED: ZOLPIDEM TARTRATE 5 MG TAB PO PRN (21:00)
[2017-04-06] MEDS: SIMETHICONE 80 MG CHEWABLE TAB PO PRN (21:41)
[2017-04-06] MEDS ORDERED: PANTOPRAZOLE SODIUM 40 MG VIAL IV PUSH SCH (22:15)
[2017-04-06 23:22] LABS: AUTOMATED NEUTROPHIL # 18.7 TH/MM3 (1.8-7.7); BASOPHIL # 0.1 TH/MM3 (0-0.2); BASOPHIL % 0.4 % (0.0-2.0); EOSINOPHIL % 0.1 % (0.0-4.0); LYMPH % 10.1 % (9.0-44.0); LYMPHOCYTE # 2.2 TH/MM3 (1.0-4.8); MEAN CORPUSCULAR HEMOGLOBIN 27.9 PG (27.0-34.0); MEAN CORPUSCULAR HGB CONC 33.2 % (32.0-36.0); MEAN PLATELET VOLUME 7.3 FL (7.0-11.0); MONO % 5.2 % (0.0-8.0); MONOCYTE # 1.2 TH/MM3 (0-0.9); NEUT % 84.2 % (16.0-70.0); PLATELET COUNT 190 TH/MM3 (150-450); RED BLOOD COUNT 2.13 MIL/MM3 (4.00-5.30); RED CELL DISTRIBUTION WIDTH 16.3 % (11.6-17.2); WHITE BLOOD COUNT 22.2 TH/MM3 (4.0-11.0)
[2017-04-06 23:26] LABS: HEMOGLOBIN 5.9 GM/DL (11.6-15.3)
[2017-04-06 23:27] LABS: HEMATOCRIT 17.9 % (35.0-46.0)
[2017-04-06] MEDS ORDERED: FUROSEMIDE 20 MG/2 ML VIAL IV PUSH PRN (23:45)
[2017-04-06] MEDS ORDERED: diphenhydrAMINE HCL 50 MG/ML VIAL IV PRN (23:45)
[2017-04-06] MEDS ORDERED: ACETAMINOPHEN 325 MG TAB PO PRN (23:45)
[2017-04-06 23:53] LABS: BANDS 6 % (0-6); LYMPHOCYTES 12 % (9-44); MONOCYTES 3 % (0-8); NEUTROPHIL # MANUAL DIFF 18.9 TH/MM3 (1.8-7.7); POLYS (SEG NEUTROPHILS) 79 % (16-70)
[2017-04-07] VITALS (20 sets, daily range): BP systolic 96–124; BP diastolic 49–76; PULSE 100–119; RESP 9–20; TEMP 97.5–99.3; O2SAT 95–100
[2017-04-07] MEDS: MISOPROSTOL 200 MCG TAB PO SCH (02:20)
[2017-04-07] MEDS: METHYLERGONOVINE MALEATE 0.2 MG/ML VIAL IM PRN (03:53)
[2017-04-07] MEDS: PCA - TOTAL MG MORPHINE DELIVERED PER SHIFT SCH ×2 (06:00→13:40)
[2017-04-07] MEDS ORDERED: FUROSEMIDE 20 MG/2 ML VIAL IV PUSH PRN (08:45)
[2017-04-07] MEDS: SIMETHICONE 80 MG CHEWABLE TAB PO PRN (11:17)
[2017-04-07] MEDS: DOCUSATE SODIUM 50 MG/SENNA 8.6 MG TAB PO PRN (11:17)
[2017-04-07] MEDS: oxyCODONE/ACETAMINOPHEN 5 MG/325 MG TAB PO PRN ×3 (14:26→22:53)
[2017-04-07] MEDS: IBUPROFEN 600 MG TAB PO PRN ×2 (14:27→20:46)
[2017-04-07] MEDS ORDERED: DIPHTH/TETANUS/ACEL PERTUSSIS (BOOSTER) 0.5 ML VIAL/PFS IM ONE (16:00)
[2017-04-07] MEDS ORDERED: MEASLES, MUMPS, RUBELLA VACCINE 0.5 ML VIAL SQ ONE (16:00)
[2017-04-07 20:11] LABS: AUTOMATED NEUTROPHIL # 13.9 TH/MM3 (1.8-7.7); BASOPHIL % 0.1 % (0.0-2.0); EOSINOPHIL # 0.2 TH/MM3 (0-0.4); EOSINOPHIL % 1.3 % (0.0-4.0); HEMATOCRIT 25.4 % (35.0-46.0); HEMOGLOBIN 8.6 GM/DL (11.6-15.3); LYMPH % 10.2 % (9.0-44.0); LYMPHOCYTE # 1.7 TH/MM3 (1.0-4.8); MEAN CELL VOLUME 82.6 FL (80.0-100.0); MEAN CORPUSCULAR HEMOGLOBIN 28.1 PG (27.0-34.0); MEAN CORPUSCULAR HGB CONC 34.1 % (32.0-36.0); MEAN PLATELET VOLUME 7.2 FL (7.0-11.0); MONO % 7.4 % (0.0-8.0); MONOCYTE # 1.3 TH/MM3 (0-0.9); PLATELET COUNT 160 TH/MM3 (150-450); RED BLOOD COUNT 3.07 MIL/MM3 (4.00-5.30); RED CELL DISTRIBUTION WIDTH 15.5 % (11.6-17.2); WHITE BLOOD COUNT 17.1 TH/MM3 (4.0-11.0)
--- NOTE | 2017-04-07 21:10 | HHI.OB ---
Subjective Post Operative Day: 1 Remarks pt is feeling better. bleeding improved since 4pm yesterday. denies cp/ palpitations/sob or wheezing. denies n/v/f/c Objective Vitals/I&O Vital Signs Date Time Temp Pulse Resp B/P (MAP) Pulse Ox O2 Delivery O2 Flow Rate FiO2 04/07/17 20:00 97.5 105 17 114/69 (84) 96 04/07/17 17:00 98.1 119 18 105/66 (79) 04/07/17 14:09 98.3 112 16 124/62 (82) 04/07/17 14:00 98.3 112 16 124/62 04/07/17 13:40 17 04/07/17 13:15 97.9 109 18 104/72 04/07/17 13:14 97.9 109 18 04/07/17 13:14 104/72 (83) 04/07/17 11:35 98.4 101 16 109/64 (79) 97 04/07/17 10:02 98.1 100 16 116/65 (82) 98 04/07/17 10:00 96/63 (74) 04/07/17 09:42 99.3 103 15 96/63 100 04/07/17 09:40 99.3 103 17 04/07/17 09:40 96/63 (74) 04/07/17 08:00 98.9 96 04/07/17 08:00 108 16 111/66 (81) 04/07/17 06:00 16 04/07/17 05:57 98.4 106 16 97/49 97 04/07/17 05:47 98.8 109 16 105/60 96 04/07/17 05:29 98.8 105 16 104/60 95 04/07/17 04:00 18 04/07/17 04:00 98.7 115 9 109/76 (87) 98 04/07/17 03:50 98.7 115 18 109/76 04/07/17 01:33 98.4 106 20 102/64 100 04/07/17 01:19 98.2 109 18 118/73 100 04/07/17 01:19 109 04/07/17 01:19 18 118/73 (88) 100 04/07/17 01:19 98.2 04/07/17 00:00 97.8 112 18 96/68 (77) 100 04/06/17 22:00 20 Result Diagram: 04/07/17 1458 04/06/17 0441 Objective Remarks GENERAL: Well-nourished, well-developed patient. CARDIOVASCULAR: Regular rate and rhythm without murmurs, gallops, or rubs. RESPIRATORY: Breath sounds equal bilaterally. No accessory muscle use. ABDOMEN/GI: Abdomen soft, non-tender, bowel sounds present. Incision: Clean, dry and intact. Fundus: Firm, non-tender at umbilicus. GENITOURINARY: Light to moderate bleeding. EXTREMITIES: No cyanosis or edema, non-tender, without signs of DVT. Medications and IVs Current Medications Medications (Trade) Dose Ordered Sig/Brit Route Start Time Stop Time Status Last Admin (Bicitra Liq) 30 ml LINE UP MACHINE OPERATOR PO 04/06/17 05:00 04/09/17 04:59 04/06/17 07:21 Cefazolin Sodium/ Dextrose 50 ml @ 100 mls/hr LINE UP MACHINE OPERATOR IV 04/06/17 05:00 04/09/17 04:59 04/06/17 07:21 (NS Flush) 2 ml BID IV FLUSH 04/06/17 09:00 (NS Flush) 2 ml UNSCH PRN IV FLUSH 04/06/17 05:00 (NS Flush) 2 ml BID IV FLUSH 04/06/17 21:00 (NS Flush) 2 ml UNSCH PRN IV FLUSH 04/06/17 09:45 (Mylicon Chew) 80 mg QID PRN PO 04/06/17 09:45 04/07/17 11:17 (Motrin) 600 mg Q6H PRN PO 04/06/17 09:45 04/07/17 20:46 (Percocet 5-325 Mg) 1 tab Q4H PRN PO 04/06/17 09:45 (Percocet 5-325 Mg) 2 tab Q4H PRN PO 04/06/17 09:45 04/07/17 18:35 (Laila-Colace) 2 tab Q12H PRN PO 04/06/17 09:45 04/07/17 11:17 (Ambien) 5 mg HS PRN PO 04/06/17 21:00 (Zofran Inj) 4 mg Q6H PRN IV PUSH 04/06/17 09:45 04/06/17 20:57 (Methergine Inj) 0.2 mg Q4H PRN IM 04/06/17 10:00 04/07/17 03:53 Assessment/Plan Problem List: (1) delivery, delivered, current hospitalization ICD Codes: O82 - Encounter for delivery without indication Plan: stable await void (2) Anemia ICD Codes: D64.9 - Anemia, unspecified Status: Acute Qualifiers: Plan: s/p 3 units prbcs will repeat cbc in Chinyere Baron MD Apr 07, 2017 21:09
[2017-04-07] MEDS ORDERED: RESP: ALBUTEROL 2.5 MG/3 ML NEB (PRN) INH ×2 (22:00)
[2017-04-07 22:01] LABS: BANDS 8 % (0-6); LYMPHOCYTES 8 % (9-44); METAMYELOCYTES 3 % (0-1); MONOCYTES 4 % (0-8); MYELOCYTES 2 % (0-0); NEUTROPHIL # MANUAL DIFF 14.7 TH/MM3 (1.8-7.7); POLYS (SEG NEUTROPHILS) 73 % (16-70)
[2017-04-08 05:46] LABS: HEMATOCRIT 23.3 % (35.0-46.0); HEMOGLOBIN 8.1 GM/DL (11.6-15.3); MEAN CELL VOLUME 82.7 FL (80.0-100.0); MEAN CORPUSCULAR HEMOGLOBIN 28.7 PG (27.0-34.0); MEAN CORPUSCULAR HGB CONC 34.7 % (32.0-36.0); MEAN PLATELET VOLUME 6.7 FL (7.0-11.0); PLATELET COUNT 142 TH/MM3 (150-450); RED BLOOD COUNT 2.81 MIL/MM3 (4.00-5.30); RED CELL DISTRIBUTION WIDTH 16.2 % (11.6-17.2); WHITE BLOOD COUNT 14.1 TH/MM3 (4.0-11.0)
[2017-04-08] MEDS: oxyCODONE/ACETAMINOPHEN 5 MG/325 MG TAB PO PRN ×4 (07:36→21:10)
[2017-04-08] MEDS: IBUPROFEN 600 MG TAB PO PRN ×2 (07:37→16:23)
[2017-04-08 08:00] VITALS: BP 118/73; PULSE 122; RESP 16; TEMP 98.2; O2SAT 97
--- NOTE | 2017-04-08 11:08 | HHI.OB ---
Subjective Post Operative Day: 2 Remarks pain controlled. mod lochia, edgardo po, +void/flatus. denies sob/cp/palpitations Objective Vitals/I&O Vital Signs Date Time Temp Pulse Resp B/P (MAP) Pulse Ox O2 Delivery O2 Flow Rate FiO2 04/08/17 08:00 98.2 122 16 118/73 (88) 97 04/07/17 22:42 21 04/07/17 20:00 97.5 105 17 114/69 (84) 96 04/07/17 17:00 98.1 119 18 105/66 (79) 04/07/17 14:09 98.3 112 16 124/62 (82) 04/07/17 14:00 98.3 112 16 124/62 04/07/17 13:40 17 04/07/17 13:15 97.9 109 18 104/72 04/07/17 13:14 97.9 109 18 04/07/17 13:14 104/72 (83) 04/07/17 11:35 98.4 101 16 109/64 (79) 97 Result Diagram: 04/08/17 0535 04/06/17 0441 Objective Remarks GENERAL: Well-nourished, well-developed patient. CARDIOVASCULAR: Regular rate and rhythm without murmurs, gallops, or rubs. RESPIRATORY: Breath sounds equal bilaterally. No accessory muscle use. ABDOMEN/GI: Abdomen soft, non-tender, bowel sounds present. Incision: Clean, dry and intact. Fundus: Firm, non-tender at umbilicus. GENITOURINARY: Light to moderate bleeding. EXTREMITIES: No cyanosis or edema, non-tender, without signs of DVT. Medications and IVs Current Medications Medications (Trade) Dose Ordered Sig/Brit Route Start Time Stop Time Status Last Admin (Bicitra Liq) 30 ml INDEPENDENT INSURANCE ADJUSTER PO 04/06/17 05:00 04/09/17 04:59 04/06/17 07:21 Cefazolin Sodium/ Dextrose 50 ml @ 100 mls/hr INDEPENDENT INSURANCE ADJUSTER IV 04/06/17 05:00 04/09/17 04:59 04/06/17 07:21 (NS Flush) 2 ml BID IV FLUSH 04/06/17 09:00 (NS Flush) 2 ml UNSCH PRN IV FLUSH 04/06/17 05:00 (NS Flush) 2 ml BID IV FLUSH 04/06/17 21:00 (NS Flush) 2 ml UNSCH PRN IV FLUSH 04/06/17 09:45 (Mylicon Chew) 80 mg QID PRN PO 04/06/17 09:45 04/07/17 11:17 (Motrin) 600 mg Q6H PRN PO 04/06/17 09:45 04/08/17 07:37 (Percocet 5-325 Mg) 1 tab Q4H PRN PO 04/06/17 09:45 (Percocet 5-325 Mg) 2 tab Q4H PRN PO 04/06/17 09:45 04/08/17 07:36 (Laila-Colace) 2 tab Q12H PRN PO 04/06/17 09:45 04/07/17 11:17 (Ambien) 5 mg HS PRN PO 04/06/17 21:00 (Zofran Inj) 4 mg Q6H PRN IV PUSH 04/06/17 09:45 04/06/17 20:57 (Methergine Inj) 0.2 mg Q4H PRN IM 04/06/17 10:00 04/07/17 03:53 (Albuterol Neb) 2.5 mg Q4HR NEB PRN INH 04/07/17 22:00 04/07/17 22:41 Assessment/Plan Problem List: (1) delivery, delivered, current hospitalization ICD Codes: O82 - Encounter for delivery without indication Plan: stable (2) Anemia ICD Codes: D64.9 - Anemia, unspecified Status: Acute Qualifiers: Plan: s/p 3 units prbcs, aymptomatic will repeat cbc in am 1/6 Chinyere Escalante MD Apr 08, 2017 11:08
[2017-04-08] MEDS: DOCUSATE SODIUM 50 MG/SENNA 8.6 MG TAB PO PRN (16:22)
[2017-04-08] MEDS: SIMETHICONE 80 MG CHEWABLE TAB PO PRN (16:22)
[2017-04-08 20:00] VITALS: BP 121/64; PULSE 105; RESP 18; TEMP 98.2; O2SAT 97
--- NOTE | 2017-04-08 23:27 | EKG ---
Date Performed: 04/06/2017 Time Performed: 22:16:09 PTAGE: 31 years EKG: SINUS TACHYCARDIA ABNORMAL RHYTHM ECG PREVIOUS TRACING : 11/29/2008 18.08 DOCTOR: Elyssa Elliott Interpretating Date/Time 04/08/2017 23:26:39
[2017-04-09] MEDS: oxyCODONE/ACETAMINOPHEN 5 MG/325 MG TAB PO PRN ×2 (04:59→10:52)
[2017-04-09] MEDS: IBUPROFEN 600 MG TAB PO PRN ×2 (04:59→10:52)
[2017-04-09 06:08] LABS: AUTOMATED NEUTROPHIL # 8.6 TH/MM3 (1.8-7.7); BASOPHIL # 0.1 TH/MM3 (0-0.2); BASOPHIL % 0.5 % (0.0-2.0); EOSINOPHIL # 0.4 TH/MM3 (0-0.4); EOSINOPHIL % 3.2 % (0.0-4.0); HEMOGLOBIN 8.2 GM/DL (11.6-15.3); LYMPH % 17.7 % (9.0-44.0); LYMPHOCYTE # 2.1 TH/MM3 (1.0-4.8); MEAN CELL VOLUME 84.2 FL (80.0-100.0); MEAN CORPUSCULAR HEMOGLOBIN 28.8 PG (27.0-34.0); MEAN CORPUSCULAR HGB CONC 34.2 % (32.0-36.0); MEAN PLATELET VOLUME 7.3 FL (7.0-11.0); MONO % 4.9 % (0.0-8.0); MONOCYTE # 0.6 TH/MM3 (0-0.9); NEUT % 73.7 % (16.0-70.0); PLATELET COUNT 199 TH/MM3 (150-450); RED BLOOD COUNT 2.84 MIL/MM3 (4.00-5.30); RED CELL DISTRIBUTION WIDTH 16.4 % (11.6-17.2); WHITE BLOOD COUNT 11.6 TH/MM3 (4.0-11.0)
[2017-04-09 07:46] LABS: BANDS 4 % (0-6); LYMPHOCYTES 20 % (9-44); MONOCYTES 2 % (0-8); NEUTROPHIL # MANUAL DIFF 8.8 TH/MM3 (1.8-7.7); POLYS (SEG NEUTROPHILS) 72 % (16-70)
[2017-04-09 08:00] VITALS: BP 109/76; PULSE 89; RESP 18; TEMP 97.8; O2SAT 97
[2017-04-09] MEDS: DOCUSATE SODIUM 50 MG/SENNA 8.6 MG TAB PO PRN (10:52)
[2017-04-09] MEDS ORDERED: IBUP-232 PO (11:15)
[2017-04-09] MEDS ORDERED: OXYC1TAB63 PO (11:15)
--- NOTE | 2017-04-09 11:21 | HHI.DS ---
Admission Date Apr 06, 2017 at 04:16 Discharge Date: Apr 09, 2017 Admitting Diagnosis di/di twins, placenta previa Diagnosis: Delivery Date: Apr 06, 2017 : Repeat Reason: twins, previa, 2 prior c-sections : Multiple (male and female) Hospital Course pt presented for repeat at 34 and 6/7 weeks secondary to placenta previa, possible accreta, with twins. on POD 0 pt had pph hemorrhage treated with cytotec, methergine, and IV pitocin. the pts anemia was treated with 4 units PRBCs. by POD 3 pt was voiding, passing gas, with good pain control. her hb remained stable at 8 and she was asymptomatic. Pt Condition on Discharge: Stable Discharge Disposition: Discharge Home Discharge Instructions Diet Instructions: As Tolerated, No Restrictions Additional Diet Instructions: Drink at least 8 - 16 oz bottles of water a day Activities You Can Perform: Shower Only-No Bath Activities to Avoid: Prolonged Standing, Strenuous Activity, Sexual Activity Additional Activity Instruc.: No driving until off pain medications Do not lift anything heavier than your baby in an carrier Chinyere Escalante MD Apr 09, 2017 11:21
== END 2017-04-09 13:45 | disposition home or self-care (01) | DRG 765 ==
LOC: H2EB 04:16 → H1EA 10:52
PROVIDERS: ADMIT Obstetrics & Gynecology; ATTEND Obstetrics & Gynecology
PROC: 10D00Z0 Extraction of Products of Conception, High, Open Approach (ICD-10-PCS; principal; 2017-04-06 07:43)
PROC: 30233N1 Transfusion of Nonautologous Red Blood Cells into Peripheral Vein, Percutaneous Approach (ICD-10-PCS; 2017-04-07)
DX: O44.03 Complete placenta previa NOS or without hemorrhage, third trimester (principal); O72.1 Other immediate postpartum hemorrhage; O30.043 Twin pregnancy, dichorionic/diamniotic, third trimester; Z37.2 Twins, both liveborn; O90.81 Anemia of the puerperium; Z3A.34 34 weeks gestation of pregnancy; N73.6 Female pelvic peritoneal adhesions (postinfective); O34.212 Maternal care for vertical scar from previous cesarean delivery; D64.9 Anemia, unspecified; O13.4 Gestational [pregnancy-induced] hypertension without significant proteinuria, complicating childbirth; J45.909 Unspecified asthma, uncomplicated
CPT/HCPCS: 36430; 59025; 80053; 80307; 81001; 84550; 85007; 85014; 85018; 85025; 85027; 85384; 85610; 85730; 86850; 86900; 86901; 86920; 86922; 88307; 93005; 94664; C9113; J0131; J0690; J1170; J1200; J1644; J1940; J2210; J2270; J2274; J2370; J2405; J2590; J3010; J7120; J7613; P9016

== ENCOUNTER 2017-05-18 15:42 | Emergency (ER) | payer OTHER ==
[~2017-05-18] VITALS: Ht 167.6 cm; Wt 82.6 kg
[~2017-05-18 15:42] MED LIST changes: -Acet-Butal-Caff 325-50-40 Mg PO; +IBUP-232 PO; -NIFE10 PO; +OXYC1TAB63 PO; -PREN1TAB45 PO
[2017-05-18 15:44] VITALS: BP 132/81; PULSE 86; RESP 14; TEMP 98.2; O2SAT 100
[2017-05-18 16:46] LABS: BASOPHIL # 0.1 TH/MM3 (0-0.2); BASOPHIL % 0.6 % (0.0-2.0); EOSINOPHIL # 0.5 TH/MM3 (0-0.4); EOSINOPHIL % 4.5 % (0.0-4.0); HEMATOCRIT 36.5 % (35.0-46.0); HEMOGLOBIN 12.2 GM/DL (11.6-15.3); LYMPH % 25.9 % (9.0-44.0); LYMPHOCYTE # 2.8 TH/MM3 (1.0-4.8); MEAN CELL VOLUME 83.4 FL (80.0-100.0); MEAN CORPUSCULAR HEMOGLOBIN 27.9 PG (27.0-34.0); MEAN CORPUSCULAR HGB CONC 33.5 % (32.0-36.0); MEAN PLATELET VOLUME 6.7 FL (7.0-11.0); MONO % 4.5 % (0.0-8.0); MONOCYTE # 0.5 TH/MM3 (0-0.9); NEUT % 64.5 % (16.0-70.0); PLATELET COUNT 455 TH/MM3 (150-450); RED BLOOD COUNT 4.37 MIL/MM3 (4.00-5.30); RED CELL DISTRIBUTION WIDTH 16.9 % (11.6-17.2); WHITE BLOOD COUNT 10.9 TH/MM3 (4.0-11.0)
[2017-05-18 16:54] LABS: BACTERIA, URINE MOD /hpf; BILIRUBIN, URINE NEG (NEG); BLOOD, URINE MOD (NEG); GLUCOSE,URINE NEG (NEG); KETONE, URINE NEG (NEG); MUCUS URINE FEW /lpf (OCC); NITRITE,URINE NEG (NEG); PH, URINE 5.5 (5.0-8.5); SQUAMOUS EPITHELIAL CELL URINE 15 /hpf (0-5); URINE COLOR YELLOW (YELLW/STRAW); URINE LEUKOCYTE ESTERASE MOD (NEG)
[2017-05-18 17:02] LABS: PROTHROMBIN TIME - PATIENT 10.5 SEC (9.8-11.6)
[2017-05-18 17:07] LABS: ALBUMIN 4.1 GM/DL (3.4-5.0); AST (GOT) 16 U/L (15-37); BICARBONATE 26.6 MEQ/L (21.0-32.0); BLOOD UREA NITROGEN 9 MG/DL (7-18); CALCIUM 9.6 MG/DL (8.5-10.1); CHLORIDE 100 MEQ/L (98-107); CREATININE 0.71 MG/DL (0.50-1.00); GLOMERULAR FILTRATION RATE 97 ML/MIN (>89); GLUCOSE,RANDOM 84 MG/DL (74-106); SODIUM (NA) 136 MEQ/L (136-145)
[2017-05-18 17:08] LABS: ALT (GPT) 16 U/L (10-53)
[2017-05-18 17:10] LABS: ALKALINE PHOSPHATASE 133 U/L (45-117); TOTAL BILIRUBIN ADULT 0.3 MG/DL (0.2-1.0); TOTAL PROTEIN 8.7 GM/DL (6.4-8.2)
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
== END 2017-05-18 17:46 | disposition home or self-care (01) ==
LOC: NEPD 15:42
DX: R10.30 Lower abdominal pain, unspecified (principal); R51 Headache; B96.20 Unspecified Escherichia coli [E. coli] as the cause of diseases classified elsewhere; J45.909 Unspecified asthma, uncomplicated; V49.40XA Driver injured in collision with unspecified motor vehicles in traffic accident, initial encounter; Z39.2 Encounter for routine postpartum follow-up; Z79.899 Other long term (current) drug therapy; Z88.8 Allergy status to other drugs, medicaments and biological substances
CPT/HCPCS: 80053; 81001; 84703; 85025; 85610; 85730; 87077; 87086; 87186; 99283